=== PATIENT | female | born 1935 | race Caucasian/White ===

== ENCOUNTER 2017-05-23 15:30 | Emergency (ER) | payer MEDICARE, OTHER, SELFPAY | END 2017-05-23 20:30 | disposition home or self-care (01) | PROVIDERS: Emergency Provider Emergency Medicine; Family Provider Nurse Practitioner Family; PCP Nurse Practitioner Family; Visit Provider Emergency Medicine | DX: I48.91 Unspecified atrial fibrillation (principal) | CPT/HCPCS: 71010; 71045; 80053; 83880; 84484; 85025; 85610; 85730; 92960; 93005; 93010; 96374; 99058; 99285; J2704 ==

== ENCOUNTER → 2017-09-28 16:57 | Outpatient (CLI) | payer MEDICARE, OTHER, SELFPAY ==
--- NOTE | 2017-09-28 17:00 | DI.MRI.S_ITS ---
PROCEDURE: MR THORACIC SPINE WO CON INDICATIONS: THORACIC SPINE PAIN TECHNIQUE: Noncontrast sagittal T1 spine echo and T2 fast spin echo, sagittal STIR, axial T1 and T2 fast spin echo through the thoracic spine. COMPARISON: None. FINDINGS: Image quality: Excellent. Alignment and Curvature: There is normal bony alignment. Bone Marrow: Marrow is of normal overall signal. No acute vertebral body compression fractures. Spinal Cord: Visualized spinal cord is normal in size and signal. Paraspinous Soft Tissues: No paravertebral masses. There is a 3.1 x 2.3 x 5.1 cm lesion in the right paratracheal mediastinum that has hypointense T1 signal and hyperintense T2 signal. Miscellaneous: Mild multilevel degenerative changes. Mild lower thoracic spine facet hypertrophy. No central stenosis. No neural foraminal narrowing. On axial images, central canal and foramina appear widely patent at all scanned levels. IMPRESSION: 1. Mild multilevel degenerative disc disease. 2. Mild multilevel facet arthropathy. 3. No central stenosis 4. No neural foraminal narrowing. 5. No definite neural impingement. 6. 3.1 x 2.3 x 5.1 cm cystic mass in the mediastinum. Recommend dedicated CT scan of the chest with contrast for further characterization. Dictated by: Leelee Tompkins MD, PhD on 09/29/2017 at 11:07 Approved by: Leelee Tompkins MD, PhD on 09/29/2017 at 11:15
== END ==
PROVIDERS: Family Provider Nurse Practitioner Family; PCP Nurse Practitioner Family; Visit Provider Physical Medicine & Rehabilitation Pain Medicine
DX: M51.34 Other intervertebral disc degeneration, thoracic region (principal); M47.814 Spondylosis without myelopathy or radiculopathy, thoracic region; J98.59 Other diseases of mediastinum, not elsewhere classified
CPT/HCPCS: 72146

== ENCOUNTER → 2017-10-24 11:30 | Outpatient (CLI) | payer MEDICARE, OTHER, SELFPAY ==
--- NOTE | 2017-10-24 | DI.CT.S_ITS ---
PROCEDURE: CT CHEST WO CON INDICATIONS: PERATRACHEAL MEDIASTINAL MASS TECHNIQUE: Noncontrast 5 mm thick sections acquired from the pulmonary apices to the posterior costophrenic angles. 7 mm thick coronal and sagittal MIP reformats were then acquired. For radiation dose reduction, the following was used: automated exposure control, adjustment of mA and/or kV according to patient size. COMPARISON: [facility], CT, C-SPINE WITHOUT CONTRAST, 01/09/2013, 14:26. [facility], CT, HEAD WITHOUT CONTRAST, 01/09/2013, 14:26. [facility], MR, MR THORACIC SPINE WO CON, 09/28/2017, 17:31. FINDINGS: Image quality: Somewhat limited by absence of intravenous contrast.. Lungs and pleura: No acute air space opacities. No pleural effusions or pneumothorax. Central and peripheral airways are patent and normal in caliber. Mediastinum: Heart size is normal. No pericardial effusion. No mediastinal adenopathy by size criteria. The right posterolateral border of the tracheal airway there is a water density structure corresponding to that seen during thoracic spine MR scanning recently, and this measures 6.0 Hounsfield units and has a maximal oblique AP and transverse dimension of 1.9 x 2.6 cm. The same structure can be found on a prior neck CT from 01/09/13, having mildly enlarged in size over time measuring up to 1.8 x 2.1 cm. Thoracic aorta and central pulmonary arteries are normal in size. Esophagus is normal in caliber. No hiatal hernia. Bones and chest wall: No suspicious bony lesions. No vertebral body compression fractures. No axillary or supraclavicular adenopathy by size criteria. Thyroid gland shows no acute disease.. Abdomen: Visualized upper abdominal solid organs and bowel loops appear normal in the absence of contrast. IMPRESSION: The absence of intravenous contrast does diminish accuracy of this study, but the study is diagnostic. There is a water density cystic structure at the right posterolateral tracheal border, thoracic inlet area, near the axial level of the thyroid gland. This was previously present, smaller in size, on the CT scan of the neck from 01/09/13 and has increased to only a small degree from 1.8 x 2.1 cm to 1.9 x 2.6 cm. Benign etiology is presumed. No additional abnormality is found. 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 Dictated by: Demarcus Cleveland M.D. on 10/24/2017 at 12:47 Approved by: Demarcus Cleveland M.D. on 10/24/2017 at 12:54
== END ==
PROVIDERS: Family Provider Nurse Practitioner Family; PCP Nurse Practitioner Family; Visit Provider Nurse Practitioner Family
DX: J98.59 Other diseases of mediastinum, not elsewhere classified (principal)
CPT/HCPCS: 71250

== ENCOUNTER → 2017-11-28 12:00 | Oncology outpatient (ONC) | payer MEDICARE, OTHER, SELFPAY ==
--- NOTE | 2017-11-27 09:21 | ONC.SCHED ---
patient left insurance cards at home . . . will bring them in next time
[2017-11-27 09:53] LABS: Add Manual Diff / Slide Review NO; Basophils Percent Auto 1.1 % (0-2); Eosinophils Percent Auto 3.1 % (2-4); Hemoglobin 7.5 g/dL (12.0-16.0); Lymphocytes Percent Auto 17.4 % (25-40); Mean Corpuscular HGB Conc 31.4 % (30-36); Mean Corpuscular Volume 73.4 fL (80-100); Monocytes Percent Auto 8.9 % (3-14); Neutrophils Absolute Auto 3300 /uL (3000-5900); Neutrophils Percent Auto 69.5 % (50-75); Platelet Count 70 X10^3/uL (150-400); Red Blood Cell Count 3.24 X10^6/uL (4.0-5.2); Red Cell Distribution Width 17.4 % (11.6-14.8); White Blood Cell Count 4.8 X10^3/uL (4.5-11.0)
[2017-11-27 09:54] LABS: Hematocrit 23.8 % (36-46)
[2017-11-27 11:53] VITALS: BP 153/63; PULSE 69; RESP 16; TEMP 36.9
[2017-11-27 12:10] VITALS: BP 156/74; PULSE 73; RESP 20; TEMP 36
--- NOTE | 2017-11-27 12:23 | TAR.TRANSNT ---
Slight shortness of breath. Encouraged deep breathing. Rate only increased to 100 cc/hr. Vitals repeated in 10 minutes.
[2017-11-27 14:24] VITALS: BP 123/77; PULSE 79; RESP 18; TEMP 36.8
[2017-11-27] MEDS: FUROSEMIDE 20 MG/2 ML VIAL 40 MG IV (14:55)
--- NOTE | 2017-11-27 16:56 | PC.NURSE ---
Vitals @ 1242 135/75, T98.3, p=74, r =20 upt to BR and voided, feeling much better. Ankles 4 + edema. Wears compression sock to deal with lymphedema. 1335 rate increased to 175. Able to finish first unit. Up to BR again and only passed gas. Given 40 IV Lasix. IV kept in place per pt.s request when will return in AM for 2nd unit. D/C with spouse ,ambulatory.
[2017-11-28 12:44] VITALS: BP 154/55; PULSE 77; RESP 16; TEMP 36.4
[2017-11-28 13:00] VITALS: BP 147/67; PULSE 76; RESP 18; TEMP 36.9
[2017-11-28 15:20] VITALS: BP 157/97; PULSE 83; RESP 16; TEMP 37.3
[2017-11-28 15:47] LABS: Hematocrit 31.6 % (36-46); Hemoglobin 10.1 g/dL (12.0-16.0)
--- NOTE | 2017-11-28 15:54 | PC.NURSE ---
Brooke came in for 2nd unit of blood via perpherial IV which still worked well today. Received blood without incident. Reported bowels and bladder REALLY worked last night and Brooke is feeling much better.Iv site maintained for testing on 11/29 with endoscopy. CBC drawn post infusion. D/C with spouse using cane.
== END ==
PROVIDERS: PCP Nurse Practitioner Family; Visit Provider Internal Medicine
DX: D50.0 Iron deficiency anemia secondary to blood loss (chronic) (principal)
CPT/HCPCS: 36415; 36430; 85014; 85018; 85025; 86850; 86900; 86901; 96374; P9016; J1940

== ENCOUNTER 2017-11-29 08:32 | Day surgery (SDC) | payer MEDICARE, OTHER, SELFPAY ==
--- NOTE | 2017-11-29 | PATH_ITS ---
[facility] Accession Number: [id number] . 01 Material submitted: . GASTRIC POLYP . 02 Diagnosis: Gastric Polyp, Biopsy: Features of hyperplastic gastric polyp. No evidence of Helicobacter organisms on H/E stain. Negative for intestinal metaplasia, dysplasia or malignancy. MRV/11/30/2017 . 02 Electronically signed: . John Valenzuela MD, PhD, Pathologist NPI- [id number] . 01 Gross description: . Received one formalin-filled container labeled with the patient's name and labeled gastric polyp. The specimen consists of a 0.2 cm portion of tissue, entirely submitted in one cassette. (DC:[id number]) /FRR . 02 Pathologist provided ICD-10: K31.7 . 02 CPT . 847747 Performed at: 01 [facility] [address] [id number] MD Hilton Sandoval MD Phone: [phone] Performed at: 02 [facility] [id number] [place] [id number] MD Eliu Penn MD Phone: [phone]
[2017-11-29 09:04] VITALS: BP 175/88; PULSE 65; RESP 16; TEMP 36.2; O2SAT 97; BMI 28.8
--- NOTE | 2017-11-29 09:21 | PM.HP.1 ---
History of Present Illness Date Patient Seen: 11/29/17 Time Patient Seen: 09:34 Chief complaint: egd [id number] Narrative: Melena with severe blood loss anemia. Stopped anticoagulation on November 23. Received 2 units of packed blood cells over the last 2 days. 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) Diabetes mellitus (Acute) History of CVA (cerebrovascular accident) (Acute) Hypercholesterolemia (Acute) Hypertension (Acute) Melanoma (Acute) Meningioma (Acute) Surgical History H/O rotator cuff surgery (Acute) History of appendectomy (Acute) History of bladder suspension procedure (Acute) History of colon resection (Acute) History of tonsillectomy (Acute) History of total knee replacement (Acute) S/P JOSE J-BSO (Acute) Family & Social History Social History: household members spouse Meds Home Medications Medication Instructions Recorded Confirmed Type doxepin 50 mg PO HS #0 03/18/12 History metoprolol tartrate 25 mg PO BID #0 12/19/15 History apixaban [Eliquis] 5 mg PO BID #0 05/23/17 History ciprofloxacin HCl [Cipro] 250 mg PO BID #0 05/23/17 History Allergies Allergy/AdvReac Type Severity Reaction Status Date / Time Penicillins [PENICILLINS] Allergy Severe fingers Verified 11/29/17 09:01 and face swell Sulfa (Sulfonamide Allergy Severe I BREAK Verified 11/29/17 09:01 Antibiotics) OUT IN WELTS aspirin [ASPIRIN] Allergy Unknown welts Verified 11/29/17 09:01 bacitracin [BACITRACIN] Allergy Unknown Verified 11/29/17 09:01 codeine [CODEINE] Allergy Unknown makes my Verified 11/29/17 09:01 stomach ache and throw up dicyclomine [DICYCLOMINE] Allergy Unknown welts Verified 11/29/17 09:01 diltiazem [DILTIAZEM] Allergy Unknown welts Verified 11/29/17 09:01 ibuprofen [IBUPROFEN] Allergy Unknown my heart Verified 11/29/17 09:01 races off the paper levofloxacin [LEVOFLOXACIN] Allergy Unknown rash Verified 11/29/17 09:01 meperidine [From DEMEROL] Allergy Unknown wel and Verified 11/29/17 09:01 I feel like I am not with it morphine [MORPHINE] Allergy Unknown welts Verified 11/29/17 09:01 neomycin [NEOMYCIN] Allergy Unknown Verified 11/29/17 09:01 nitroglycerin [NITROGLYCERIN] Allergy Unknown my body Verified 11/29/17 09:01 turns all dark blue phenylbutazone Allergy Unknown welts Verified 11/29/17 09:01 [PHENYLBUTAZONE] polymyxin B [POLYMYXIN B] Allergy Unknown Verified 11/29/17 09:01 ranitidine [RANITIDINE] Allergy Unknown welts Verified 11/29/17 09:01 IVP DYE Allergy Unknown MY Uncoded 05/17/17 13:10 FINGERS, FACE SWELL HUGE Exam Vital Signs (past 8 hours): - 11/29/17 09:04 Temperature 97.2 F L Pulse Rate 65 Respiratory Rate 16 Blood Pressure 175/88 H Pulse Oximetry 97 Oxygen Delivery Method Room Air Narrative Exam Narrative: Oropharynx free of lesions Chest clear to auscultation and percussion Cardiac exam reveals no S3 or murmur Assessment & Plan Plan: Assessment/Plan Narrative: Assessment: 1. Severe blood loss anemia with melena now currently off anticoagulation. Rule out upper tract source. 2. Mild substernal dysphagia rule out Schatzki's ring versus esophageal stenosis 3. Cystic structure in her upper mediastinum doubt related to either 1. Or 2. Plan: EGD
[2017-11-29] MEDS: SODIUM CHLORIDE 0.9% 1,000 ML 42 ML IV (09:23)
--- NOTE | 2017-11-29 09:40 | P.HP_ITS ---
History of Present Illness Date Patient Seen: 11/29/17 Time Patient Seen: 09:34 Chief complaint: egd [id number] Narrative: Melena with severe blood loss anemia. Stopped anticoagulation on November 23. Received 2 units of packed blood cells over the last 2 days. 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) Diabetes mellitus (Acute) History of CVA (cerebrovascular accident) (Acute) Hypercholesterolemia (Acute) Hypertension (Acute) Melanoma (Acute) Meningioma (Acute) Surgical History H/O rotator cuff surgery (Acute) History of appendectomy (Acute) History of bladder suspension procedure (Acute) History of colon resection (Acute) History of tonsillectomy (Acute) History of total knee replacement (Acute) S/P JOSE J-BSO (Acute) Family & Social History Social History: household members spouse Meds Home Medications Medication Instructions Recorded Confirmed Type doxepin 50 mg PO HS #0 03/18/12 History metoprolol tartrate 25 mg PO BID #0 12/19/15 History apixaban [Eliquis] 5 mg PO BID #0 05/23/17 History ciprofloxacin HCl [Cipro] 250 mg PO BID #0 05/23/17 History Allergies Allergy/AdvReac Type Severity Reaction Status Date / Time Penicillins [PENICILLINS] Allergy Severe fingers Verified 11/29/17 09:01 and face swell Sulfa (Sulfonamide Allergy Severe I BREAK Verified 11/29/17 09:01 Antibiotics) OUT IN WELTS aspirin [ASPIRIN] Allergy Unknown welts Verified 11/29/17 09:01 bacitracin [BACITRACIN] Allergy Unknown Verified 11/29/17 09:01 codeine [CODEINE] Allergy Unknown makes my Verified 11/29/17 09:01 stomach ache and throw up dicyclomine [DICYCLOMINE] Allergy Unknown welts Verified 11/29/17 09:01 diltiazem [DILTIAZEM] Allergy Unknown welts Verified 11/29/17 09:01 ibuprofen [IBUPROFEN] Allergy Unknown my heart Verified 11/29/17 09:01 races off the paper levofloxacin [LEVOFLOXACIN] Allergy Unknown rash Verified 11/29/17 09:01 meperidine [From DEMEROL] Allergy Unknown wel and Verified 11/29/17 09:01 I feel like I am not with it morphine [MORPHINE] Allergy Unknown welts Verified 11/29/17 09:01 neomycin [NEOMYCIN] Allergy Unknown Verified 11/29/17 09:01 nitroglycerin [NITROGLYCERIN] Allergy Unknown my body Verified 11/29/17 09:01 turns all dark blue phenylbutazone Allergy Unknown welts Verified 11/29/17 09:01 [PHENYLBUTAZONE] polymyxin B [POLYMYXIN B] Allergy Unknown Verified 11/29/17 09:01 ranitidine [RANITIDINE] Allergy Unknown welts Verified 11/29/17 09:01 IVP DYE Allergy Unknown MY Uncoded 05/17/17 13:10 FINGERS, FACE SWELL HUGE Exam Vital Signs (past 8 hours): - 11/29/17 09:04 Temperature 97.2 F L Pulse Rate 65 Respiratory Rate 16 Blood Pressure 175/88 H Pulse Oximetry 97 Oxygen Delivery Method Room Air Narrative Exam Narrative: Oropharynx free of lesions Chest clear to auscultation and percussion Cardiac exam reveals no S3 or murmur Assessment & Plan Plan: Assessment/Plan Narrative: Assessment: 1. Severe blood loss anemia with melena now currently off anticoagulation. Rule out upper tract source. 2. Mild substernal dysphagia rule out Schatzki's ring versus esophageal stenosis 3. Cystic structure in her upper mediastinum doubt related to either 1. Or 2. Plan: EGD
[2017-11-29] MEDS: MIDAZOLAM 5 MG/5 ML VIAL IV (10:06)
--- NOTE | 2017-11-29 10:10 | PM.OP.ENDO ---
Operative Date/Time/Diagnoses Date of procedure: 11/29/17 Time of procedure: 10:10 Pre-op diagnosis: See indication and findings Post-op diagnosis: same Procedure & Clinicians Study performed: EGD Same procedure as scheduled: Yes Indications: Severe blood loss anemia with possible melena. Just received 2 units of packed cells this week. Rule out upper tract source. In addition patient has mild substernal dysphagia. Surgeon: Dorothea Boone Procedure Notes Procedure in detail: Premedications: Fentanyl 50 mcg Versed 2 mg IV titration Total sedation time 17 min After informed consent was obtained the patient was placed in left lateral decubitus position. The video upper scope was placed into the oropharynx and the patient's health swelled and the esophagus. The esophagus stomach and duodenum were carefully examined. On withdrawal retroflexed view the GE junction was performed. The scope was removed. Patient tolerated procedure well. Blood loss none Complications none Findings 1. Completely normal esophagus. There was no evidence of any extrinsic compression nor was any evidence of inflammation or neoplasia. The squamocolumnar junction was totally normal. 2. 8 mm polyp in the greater curvature/antrum body border. This was biopsied x1 to rule out adenoma. 3. Otherwise normal stomach with no evidence of inflammation Four. Normal duodenal bulb and sweep Unfortunately, with no source of bleeding found, Brooke is going to need colonoscopy to follow up on a blood loss source. I will discuss with Dr. ferguson on the timing and scheduling of this procedure.
[2017-11-29] MEDS: fentaNYL 250 MCG/5 ML INJ IV (10:13)
[2017-11-29 10:18] VITALS: BP 145/82; PULSE 71; RESP 20; TEMP 36.9; O2SAT 91
[2017-11-29 10:23] VITALS: BP 157/75; PULSE 62; RESP 15; O2SAT 100
[2017-11-29 10:28] VITALS: BP 142/80; PULSE 62; RESP 17; O2SAT 99
[2017-11-29 10:40] VITALS: BP 164/88; PULSE 67; RESP 16; TEMP 36.9; O2SAT 97
--- NOTE | 2017-11-29 10:50 | SUR.PHASEII ---
op report given to patient per Dr. Boone.
--- NOTE | 2017-11-29 10:54 | SUR.PHASEII ---
patient eatting crackers and applesauce and drinking apple juice waiting on to return.
--- NOTE | 2017-11-29 11:05 | SUR.PHASEII ---
patient dressed and sitting in wheelchair waiting on and Dr. Boone to speak to them before they leave. no distress noted.
== END 2017-11-29 11:35 | disposition home or self-care (01) ==
PROVIDERS: PCP Internal Medicine; Visit Provider Internal Medicine Gastroenterology
PROC: 0DJ08ZZ Inspection of Upper Intestinal Tract, Via Natural or Artificial Opening Endoscopic (ICD-10-PCS; CPT 43235; principal; 2017-11-29 09:30)
DX: D62 Acute posthemorrhagic anemia (principal); R13.10 Dysphagia, unspecified; K31.7 Polyp of stomach and duodenum; E11.9 Type 2 diabetes mellitus without complications; E78.00 Pure hypercholesterolemia, unspecified; I10 Essential (primary) hypertension; I48.91 Unspecified atrial fibrillation; Z86.73 Personal history of transient ischemic attack (TIA), and cerebral infarction without residual deficits
CPT/HCPCS: 43239; 88305; J2250; J3010

== ENCOUNTER 2017-12-13 10:28 | Day surgery (SDC) | payer MEDICARE, OTHER, SELFPAY ==
--- NOTE | 2017-12-13 | PATH_ITS ---
[facility] Accession Number: [id number] . 01 Material submitted: . PART A: ASCENDING COLON MASS PART B: RECTAL SIGMOID POLYP . 02 Diagnosis: A. Ascending Colon, Mass, Biopsies: Invasive adenocarcinoma, moderately differentiated. Please see comment. . B. Rectosigmoid, Polyp, Biopsy: Tubular adenoma. MRV/12/14/2017 . 02 Comment: A. As part of routine quality assurance calibrator, Dr. Amado also reviewed part A of this case and agrees with the diagnosis. Dr. Hood discussed the results with Dr. Clarke 12/14/2017. Mismatch repair IHC will be performed and the results reported as an addendum. . 02 Electronically signed: . Martha Hood MD, Pathologist NPI- [id number] . 01 Gross description: . Received two formalin-filled containers, both labeled with the patient's name: . A. In a container labeled ascending colon mass, the specimen consists of three 0.2-0.4 cm portions of tissue, entirely submitted in cassette A. B. In a container labeled rectosigmoid polyp, the specimen consists of a 0.4 cm portion of tissue, entirely submitted in cassette B. (DC:[id number]) /FRR . 02 Pathologist provided ICD-10: C18.9 . 02 CPT . 046589, 475092, I17816, V73998 Specimen Comment: A duplicate report has been generated due to demographic updates. Performed at: 01 [facility] [address] [facility] [place], [place], [place] [id number] MD Hilton Sandoval MD Phone: [phone] Performed at: 02 [facility] [place] [id number] [place] [id number] MD Eliu Penn MD Phone: [phone]
--- NOTE | 2017-12-13 08:23 | PM.HP.1 ---
History of Present Illness Date Patient Seen: 12/13/17 Chief complaint: colonoscopy [id number] Narrative: 82-year-old female with a history of melena and acute blood loss anemia who is here for colonoscopy after EGD performed 11/29/2017 was unrevealing for a bleeding source. Patient had a hyperplastic gastric polyp on that exam otherwise unremarkable exam. She has been off her Eliquis for over 2 weeks due to the GI bleed Patient History Medical History Current use of assisted anticoagulation (Acute) Diabetes mellitus (Acute) History of CVA (cerebrovascular accident) (Acute) Hypercholesterolemia (Acute) Hypertension (Acute) Melanoma (Acute) Meningioma (Acute) Surgical History H/O rotator cuff surgery (Acute) History of appendectomy (Acute) History of bladder suspension procedure (Acute) History of colon resection (Acute) History of tonsillectomy (Acute) History of total knee replacement (Acute) S/P JOSE J-BSO (Acute) Family & Social History Social History: household members spouse Meds Home Medications Medication Instructions Recorded Confirmed Type doxepin 50 mg PO HS #0 03/18/12 History metoprolol tartrate 25 mg PO BID #0 12/19/15 History apixaban [Eliquis] 5 mg PO BID #0 05/23/17 History gabapentin 100 mg PO DAILY 12/13/17 12/13/17 History Allergies Allergy/AdvReac Type Severity Reaction Status Date / Time Penicillins [PENICILLINS] Allergy Severe fingers Verified 11/29/17 09:01 and face swell Sulfa (Sulfonamide Allergy Severe I BREAK Verified 11/29/17 09:01 Antibiotics) OUT IN WELTS aspirin [ASPIRIN] Allergy Unknown welts Verified 11/29/17 09:01 bacitracin [BACITRACIN] Allergy Unknown Verified 11/29/17 09:01 codeine [CODEINE] Allergy Unknown makes my Verified 11/29/17 09:01 stomach ache and throw up dicyclomine [DICYCLOMINE] Allergy Unknown welts Verified 11/29/17 09:01 diltiazem [DILTIAZEM] Allergy Unknown welts Verified 11/29/17 09:01 ibuprofen [IBUPROFEN] Allergy Unknown my heart Verified 11/29/17 09:01 races off the paper levofloxacin [LEVOFLOXACIN] Allergy Unknown rash Verified 11/29/17 09:01 meperidine [From DEMEROL] Allergy Unknown welts and Verified 11/29/17 09:01 I feel like I am not with it morphine [MORPHINE] Allergy Unknown welts Verified 11/29/17 09:01 neomycin [NEOMYCIN] Allergy Unknown Verified 11/29/17 09:01 nitroglycerin [NITROGLYCERIN] Allergy Unknown my body Verified 11/29/17 09:01 turns all dark blue phenylbutazone Allergy Unknown welts Verified 11/29/17 09:01 [PHENYLBUTAZONE] polymyxin B [POLYMYXIN B] Allergy Unknown Verified 11/29/17 09:01 ranitidine [RANITIDINE] Allergy Unknown welts Verified 11/29/17 09:01 IVP DYE Allergy Unknown MY Uncoded 05/17/17 13:10 FINGERS, FACE SWELL HUGE Review of Systems Review of Systems All systems reviewed & are unremarkable except as noted in HPI and below Exam Narrative Exam Narrative: General: Patient is well developed, not in apparent distress Cardiovascular: Regular rate and rhythm, no murmurs, rubs, or gallops; no evidence of edema; no palpable abdominal aortic aneurysm Gastrointestinal: Normoactive bowel sounds, soft, nontender, nondistended, no rebound tenderness, no hepatosplenomegaly, no evidence of hernia Assessment & Plan Plan: Assessment/Plan Narrative: 82-year-old female with a history of acute blood loss anemia and melena with unrevealing EGD for source of bleeding who is here for colonoscopy. She has been off Eliquis for 2 weeks Regarding the procedure(s), the risks and potential complications, benefits, and alternatives (including not doing the procedure) were discussed with the patient. The risks include but are not limited to bleeding, splenic injury, infection, perforation which may require surgical intervention, missed lesions, and adverse reactions to sedative medicines. After a question and answer period, the patient agreed to proceed with the procedure(s) and gives informed consent.
--- NOTE | 2017-12-13 08:26 | P.HP_ITS ---
History of Present Illness Date Patient Seen: 12/13/17 Chief complaint: colonoscopy [id number] Narrative: 82-year-old female with a history of melena and acute blood loss anemia who is here for colonoscopy after EGD performed 11/29/2017 was unrevealing for a bleeding source. Patient had a hyperplastic gastric polyp on that exam otherwise unremarkable exam. She has been off her Eliquis for over 2 weeks due to the GI bleed Patient History Medical History Current use of [employer] anticoagulation (Acute) Diabetes mellitus (Acute) History of CVA (cerebrovascular accident) (Acute) Hypercholesterolemia (Acute) Hypertension (Acute) Melanoma (Acute) Meningioma (Acute) Surgical History H/O rotator cuff surgery (Acute) History of appendectomy (Acute) History of bladder suspension procedure (Acute) History of colon resection (Acute) History of tonsillectomy (Acute) History of total knee replacement (Acute) S/P JOSE J-BSO (Acute) Family & Social History Social History: household members spouse Meds Home Medications Medication Instructions Recorded Confirmed Type doxepin 50 mg PO HS #0 03/18/12 History metoprolol tartrate 25 mg PO BID #0 12/19/15 History apixaban [Eliquis] 5 mg PO BID #0 05/23/17 History gabapentin 100 mg PO DAILY 12/13/17 12/13/17 History Allergies Allergy/AdvReac Type Severity Reaction Status Date / Time Penicillins [PENICILLINS] Allergy Severe fingers Verified 11/29/17 09:01 and face swell Sulfa (Sulfonamide Allergy Severe I BREAK Verified 11/29/17 09:01 Antibiotics) OUT IN WELTS aspirin [ASPIRIN] Allergy Unknown welts Verified 11/29/17 09:01 bacitracin [BACITRACIN] Allergy Unknown Verified 11/29/17 09:01 codeine [CODEINE] Allergy Unknown makes my Verified 11/29/17 09:01 stomach ache and throw up dicyclomine [DICYCLOMINE] Allergy Unknown welts Verified 11/29/17 09:01 diltiazem [DILTIAZEM] Allergy Unknown welts Verified 11/29/17 09:01 ibuprofen [IBUPROFEN] Allergy Unknown my heart Verified 11/29/17 09:01 races off the paper levofloxacin [LEVOFLOXACIN] Allergy Unknown rash Verified 11/29/17 09:01 meperidine [From DEMEROL] Allergy Unknown welts and Verified 11/29/17 09:01 I feel like I am not with it morphine [MORPHINE] Allergy Unknown welts Verified 11/29/17 09:01 neomycin [NEOMYCIN] Allergy Unknown Verified 11/29/17 09:01 nitroglycerin [NITROGLYCERIN] Allergy Unknown my body Verified 11/29/17 09:01 turns all dark blue phenylbutazone Allergy Unknown welts Verified 11/29/17 09:01 [PHENYLBUTAZONE] polymyxin B [POLYMYXIN B] Allergy Unknown Verified 11/29/17 09:01 ranitidine [RANITIDINE] Allergy Unknown welts Verified 11/29/17 09:01 IVP DYE Allergy Unknown MY Uncoded 05/17/17 13:10 FINGERS, FACE SWELL HUGE Review of Systems Review of Systems All systems reviewed & are unremarkable except as noted in HPI and below Exam Narrative Exam Narrative: General: Patient is well developed, not in apparent distress Cardiovascular: Regular rate and rhythm, no murmurs, rubs, or gallops; no evidence of edema; no palpable abdominal aortic aneurysm Gastrointestinal: Normoactive bowel sounds, soft, nontender, nondistended, no rebound tenderness, no hepatosplenomegaly, no evidence of hernia Assessment & Plan Plan: Assessment/Plan Narrative: 82-year-old female with a history of acute blood loss anemia and melena with unrevealing EGD for source of bleeding who is here for colonoscopy. She has been off Eliquis for 2 weeks Regarding the procedure(s), the risks and potential complications, benefits, and alternatives (including not doing the procedure) were discussed with the patient. The risks include but are not limited to bleeding, splenic injury, infection, perforation which may require surgical intervention, missed lesions, and adverse reactions to sedative medicines. After a question and answer period , the patient agreed to proceed with the procedure(s) and gives informed consent.
[2017-12-13 11:02] VITALS: BP 146/73; PULSE 77; RESP 16; TEMP 36.6; O2SAT 98; BMI 33.3
[2017-12-13] MEDS: SODIUM CHLORIDE 0.9% 1,000 ML 70 ML IV (11:13)
--- NOTE | 2017-12-13 11:17 | PM.OP.ENDO ---
Operative Date/Time/Diagnoses Date of procedure: 12/13/17 Procedure Notes Procedure in detail: Surgeon: Johnnie Rios MD Procedure: Colonoscopy with polypectomy, biopsy, and tattoo Preoperative diagnosis: Acute anemia, melena; unrevealing EGD November 2017 Postoperative diagnosis: Ascending colon mass status post biopsy and tattoo, rectosigmoid colon polyp status post polypectomy, sigmoid diverticulosis, grade 2 internal hemorrhoids Medications: Conscious sedation using 2 mg IV of Midazolam and 50 mcg IV of Fentanyl Preanesthesia Assessment An H and P was performed/updated and the Px?s ASA class is 2. The procedure was discussed in detail with the patient. The potential risks and complications including infection, bleeding, missed lesions, perforation, need for surgery in case of perforation, prolonged hospital stay, and were explained. A brief question and answer period was allotted and once all questions were answered, informed consent was obtained. The patient was brought back to the procedure room and placed on standard monitoring. The patient?s vital signs were monitored continuously throughout the entire procedure. Prior to starting, a timeout was performed to confirm the patient?s identity, allergies, medications, and procedure. The patient was off her Eliquis for more than 2 weeks Procedure in detail The patient was placed in left lateral decubitus position and once adequate sedation was obtained a KELSEY was performed. The digital rectal examination did not reveal any palpable lesions. The tip of the colonoscope was placed in the anal canal and advanced without difficulty all the way to the cecum which was identified by the appendiceal orifice and the ileocecal valve. In the proximal ascending colon just distal to the ileocecal valve there is note of a 3 cm ulcerating mass spanning 1/4 the circumference of the colon. Biopsies were taken of the mass and an adjacent tattoo was placed using 2 cc of spot ink which was injected through the needle. In the sigmoid colon there was note of multiple small diverticula In the rectosigmoid colon there was note of a 5 mm pedunculated polyp which was removed by means of cold snare. Resection and retrieval were complete with minimal bleeding Retroflexion was performed in the rectum which revealed grade 2 internal hemorrhoids The patient tolerated the procedure well and will be brought back to the recovery area to be discharged once criteria are met. The prep was judged to be good/excellent and adequate to identify polyps less than 5 mm. The withdrawal time was 12 min. The total physician intraservice time was 18 min. Complications There were no complications and estimated blood loss was minimal. Recommendations: Resume previous diet Continue outPx medications Follow up pathology results Refer to [facility] (Dr Ellison) Check CEA Check CT abdomen and pelvis with contrast Refer to [facility] An emergency contact number was given to the patient for any complications related to the procedure Discussed findings with Dr. Clarke (PCP) over the phone
--- NOTE | 2017-12-13 11:32 | SUR.OPER ---
advanced to cecum at 1125
[2017-12-13] MEDS: fentaNYL 250 MCG/5 ML INJ IV (11:34)
[2017-12-13] MEDS: MIDAZOLAM 5 MG/5 ML VIAL IV (11:34)
[2017-12-13 11:40] VITALS: BP 132/46; PULSE 71; RESP 18; TEMP 36.6; O2SAT 98
[2017-12-13 11:45] VITALS: BP 128/62; PULSE 70; RESP 17; O2SAT 98
[2017-12-13 11:50] VITALS: BP 125/62; PULSE 68; RESP 15; TEMP 36.6; O2SAT 97
--- NOTE | 2017-12-13 11:51 | PM.DS.1 ---
History of Present Illness Chief complaint: colonoscopy [address] Narrative: 82-year-old female with a history of melena and acute blood loss anemia who is here for colonoscopy after EGD performed 11/29/2017 was unrevealing for a bleeding source. Patient had a hyperplastic gastric polyp on that exam otherwise unremarkable exam. She has been off her Eliquis for over 2 weeks due to the GI bleed Discharge Providers Primary care physician: Rui Clarke MD Consults: 12/13/17 11:11 Consult to Respiratory Therapy Evaluate & Treat Comment: Physician Instructions: Evaluate and treat Discharge provider: Johnnie Rios MD Discharge Date: 12/13/17 Exam Vital Signs (past 8 hours): - 12/13/17 11:02 12/13/17 11:40 12/13/17 11:45 Temperature 97.8 F 98 F Pulse Rate 77 71 70 Respiratory Rate 16 18 17 Blood Pressure 146/73 H 132/46 L 128/62 Pulse Oximetry 98 98 98 Oxygen Delivery Method Room Air Narrative Exam Narrative: General: Patient is obese, not in apparent distress Cardiovascular: Regular rate and rhythm, no murmurs, rubs, or gallops; no evidence of edema; no palpable abdominal aortic aneurysm Gastrointestinal: Normoactive bowel sounds, soft, nontender, nondistended, no rebound tenderness, no hepatosplenomegaly, no evidence of hernia Discharge Plan Discharge Plan Patient Disposition: Home Discharge Med Rec/Prescriptions Prescriptions: Continue doxepin 50 MG capsule 50 mg PO HS Qty: 0 RF: 0 metoprolol tartrate 25 MG tablet 25 mg PO BID Qty: 0 RF: 0 gabapentin 100 mg Capsule 100 mg PO DAILY RF: 0 No Action apixaban [Eliquis] 5 MG tablet 5 mg PO BID Qty: 0 RF: 0 Discharge Orders: Discharge (Order); Ordered 12/13/17 Ordered By: Johnnie Rios Visit Report/Discharge Packet Stand Alone Forms: Surgery Discharge Discharge Data Primary Care Provider: Rui Clarke Attending Provider: Johnnie Rios
[2017-12-13 11:55] VITALS: BP 133/61; PULSE 68; RESP 18; TEMP 36.8; O2SAT 97
--- NOTE | 2017-12-13 12:16 | SUR.PHASEII ---
Dr. Rios wants to speak to patient and family prior to discharge. pt drinking grape juice no apparent distress noted.
[2017-12-13 13:00] VITALS: BP 148/79; PULSE 76; RESP 16; TEMP 37.5; O2SAT 99
== END 2017-12-13 13:12 | disposition home or self-care (01) ==
PROVIDERS: PCP Internal Medicine; Visit Provider Internal Medicine Gastroenterology
PROC: 0DJD8ZZ Inspection of Lower Intestinal Tract, Via Natural or Artificial Opening Endoscopic (ICD-10-PCS; CPT 45378; principal; 2017-12-13 12:30)
DX: C18.9 Malignant neoplasm of colon, unspecified (principal); D50.9 Iron deficiency anemia, unspecified; Z79.01 Long term (current) use of anticoagulants; E11.9 Type 2 diabetes mellitus without complications; Z86.73 Personal history of transient ischemic attack (TIA), and cerebral infarction without residual deficits; E78.00 Pure hypercholesterolemia, unspecified; I10 Essential (primary) hypertension; K64.1 Second degree hemorrhoids
CPT/HCPCS: 45385; 45380; 45381; 88305; 88341; 88342; J2250; J3010

== ENCOUNTER → 2017-12-27 11:25 | Outpatient (CLI) | payer MEDICARE, OTHER, SELFPAY | PROVIDERS: PCP Internal Medicine; Visit Provider Surgery | DX: C18.9 Malignant neoplasm of colon, unspecified (principal); Z53.9 Procedure and treatment not carried out, unspecified reason ==

== ENCOUNTER → 2017-12-29 08:43 | Outpatient (CLI) | payer MEDICARE, OTHER, SELFPAY ==
--- NOTE | 2017-12-29 | DI.CT.S_ITS ---
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 TECHNIQUE: After the administration of oral and intravenous contrast, 5 mm thick sections acquired from the lung apices to the symphysis. 5 mm coronal and sagittal reformats were performed, with additional 7 mm coronal MIP reformats through the lungs. For radiation dose reduction, the following was used: automated exposure control, adjustment of mA and/or kV according to patient size. COMPARISON: [facility], CT, CT CHEST WO CON, 10/24/2017, 11:31. FINDINGS: Image quality: Excellent. CHEST: Lungs and pleura: No acute airspace opacities. No pleural effusions or pneumothorax. Central and peripheral airways appear patent and normal in caliber. Mediastinum: Heart size is normal. No pericardial effusion. No mediastinal or hilar adenopathy by size criteria. Thoracic aorta and central pulmonary arteries are normal in size. Esophagus is normal in caliber. No hiatal hernia. Stable appearing water density right posterolateral upper mediastinal cyst. 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 It measures approximately 3.5 x 2.2 x 3.6 cm. Chest wall: No axillary or supraclavicular adenopathy by size criteria. Thyroid gland appears normal where well visualized. ABDOMEN: Solid organs: Liver is normal in size and enhancement. Gallbladder is not seen but metallic surgical clips are not identified at the gallbladder fossa margins. Biliary system is non dilated. Pancreas enhances normally. Spleen is normal in size and enhancement. No adrenal nodules. Kidneys demonstrate normal size and enhancement, without hydronephrosis. Peritoneum and bowel: Bowel loops demonstrate normal wall thickness and caliber. No free fluid or air. Nodes and vessels: No retroperitoneal or mesenteric adenopathy by size criteria. Aorta and inferior vena cava are normal in size. Miscellaneous: No ventral hernias. PELVIS: Genitourinary: Bladder wall thickness is normal. Note is made of a small bubble within the anterior lumen of the bladder, without adjacent diverticulitis identified. Miscellaneous: No inguinal hernias or adenopathy. Bones: No suspicious bony lesions. No vertebral body compression fractures. IMPRESSION: 1. 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 2. No evidence of metastatic disease related to reported prior colon carcinoma. 3. Single small bubble within the bladder lumen, without evidence of adjacent diverticulitis. Etiology uncertain, please correlate for whether bladder catheterization may have been performed earlier. Diverticulosis is moderate in severity across the lower pelvis. Dictated by: Demarcus Cleveland M.D. on 12/29/2017 at 12:21 Approved by: Demarcus Cleveland M.D. on 12/29/2017 at 12:31
== END ==
PROVIDERS: PCP Internal Medicine; Visit Provider Surgery
DX: C18.9 Malignant neoplasm of colon, unspecified (principal); Z85.820 Personal history of malignant melanoma of skin; Z85.3 Personal history of malignant neoplasm of breast; K57.90 Diverticulosis of intestine, part unspecified, without perforation or abscess without bleeding
CPT/HCPCS: 71260; 74177; Q9967

== ENCOUNTER → 2018-03-05 15:23 | Outpatient (CLI) | payer MEDICARE, OTHER, SELFPAY ==
[2018-03-05 16:26] LABS: Appearance Urine UA SL CLOUDY; Bilirubin Urine UA NEGATIVE (NEGATIVE); Color Urine UA YELLOW; Glucose Urine UA NEGATIVE (Negative); Ketones Urine UA NEGATIVE (NEGATIVE); Leukocyte Esterase Urine UA 3+ (NEGATIVE); Nitrite Urine UA POSITIVE (Negative); Occult Blood Urine UA 1+ (Negative); Protein Urine UA NEGATIVE (Negative); Urobilinogen Urine UA 0.2 E.U./dL (0.2); pH Urine UA 5.5 (4.5-8.0)
[2018-03-05 16:51] LABS: Amorphous Sediment Urine 1+; RBC Urine 1-5/HPF (0-5/HPF); Renal Epithelial Cells Urine 0-1/HPF; Squamous Epithelial Cell Urine 0-1 /HPF; WBC Urine 30-100/HPF (0-5/HPF)
[2018-03-05 16:52] LABS: Bacteria Urine Many (>30); Culture Indicated Urine Specimen Cultured; Mucus Urine 1+ (Negative)
== END ==
PROVIDERS: PCP Internal Medicine; Visit Provider Internal Medicine
DX: R30.0 Dysuria (principal)
CPT/HCPCS: 81001; 87077; 87086; 87186

== ENCOUNTER 2018-03-16 14:27 | Emergency (ER) | payer MEDICARE, OTHER, SELFPAY ==
[2018-03-16 15:40] VITALS: BP 122/74; PULSE 72; RESP 16; TEMP 36.9; O2SAT 98
--- NOTE | 2018-03-16 17:12 | ED.SKABFB ---
HPI - Skin/Abscess/Foreign Bdy General Chief complaint: Skin/Abscess/Foreign Body Stated complaint: right leg breaking out in rash real bad Time Seen by Provider: 03/16/18 17:06 Source: patient and other (Dr. Clarke) Mode of arrival: ambulatory Limitations: no limitations History of Present Illness HPI narrative: This is an 82-year-old female comes to the emergency department with complaint of rash on her right lower extremity. Patient states that she noted about 2 days ago. She states that it is very itchy started more down towards the foot and has been extending up the leg. She also noticed a little bit on her other foot. Patient states she has not had similar rashes in the past. She denies any other bruising or skin changes. She did have melanoma not leg in the past. Patient was seen by her primary care and they ordered lab work which showed an elevated CRP and ESR, her hemoglobin has also decreased to 8.7. She was at a similar range in November was given 2 units blood it appears that she was at 10 at that time and then appears to have drifted down since then. Patient is not having any shortness of breath she is not having any chest pain or pressure, she is not having any abdominal pain. She had colon cancer that was found and had a resection in November. Patient states that she has been doing well since then she has not noticed any black or blood in her stool she is not having any urinary symptoms although she has been on 3 rounds of antibiotics most recent was Macrobid she states that she is currently taking that and that she does have multiple allergies to medications. Related Data Home Medications Medication Instructions Recorded Confirmed doxepin 50 mg PO BEDTIME #0 03/18/12 03/16/18 Eliquis 5 mg PO BID #0 05/23/17 03/16/18 gabapentin 100 mg PO DAILY 12/13/17 03/16/18 brimonidine-timolol [Combigan] 1 drp EYE-BOTH BID 03/16/18 03/16/18 furosemide 40 mg PO DAILY 03/16/18 latanoprost 1 drp OPHTHALMIC (EYE) BEDTIME 03/16/18 03/16/18 metformin 500 mg PO BID 03/16/18 03/16/18 metoprolol succinate 03/16/18 omeprazole 20 mg PO DAILY 03/16/18 03/16/18 Previous Rx's Medication Instructions Recorded prednisone See Rx Instructions .ROUTE 03/16/18 .COMPLEX #21 each Allergies Allergy/AdvReac Type Severity Reaction Status Date / Time Penicillins [PENICILLINS] Allergy Severe fingers Verified 11/29/17 09:01 and face swell Sulfa (Sulfonamide Allergy Severe I BREAK Verified 11/29/17 09:01 Antibiotics) OUT IN WELTS aspirin [ASPIRIN] Allergy Unknown welts Verified 11/29/17 09:01 bacitracin [BACITRACIN] Allergy Unknown Verified 11/29/17 09:01 codeine [CODEINE] Allergy Unknown makes my Verified 11/29/17 09:01 stomach ache and throw up dicyclomine [DICYCLOMINE] Allergy Unknown welts Verified 11/29/17 09:01 diltiazem [DILTIAZEM] Allergy Unknown welts Verified 11/29/17 09:01 ibuprofen [IBUPROFEN] Allergy Unknown my heart Verified 11/29/17 09:01 races off the paper levofloxacin [LEVOFLOXACIN] Allergy Unknown rash Verified 11/29/17 09:01 meperidine [From DEMEROL] Allergy Unknown welts and Verified 11/29/17 09:01 I feel like I am not with it morphine [MORPHINE] Allergy Unknown welts Verified 11/29/17 09:01 neomycin [NEOMYCIN] Allergy Unknown Verified 11/29/17 09:01 nitroglycerin [NITROGLYCERIN] Allergy Unknown my body Verified 11/29/17 09:01 turns all dark blue phenylbutazone Allergy Unknown welts Verified 11/29/17 09:01 [PHENYLBUTAZONE] polymyxin B [POLYMYXIN B] Allergy Unknown Verified 11/29/17 09:01 ranitidine [RANITIDINE] Allergy Unknown welts Verified 11/29/17 09:01 IVP DYE Allergy Unknown MY Uncoded 05/17/17 13:10 FINGERS, FACE SWELL HUGE Review of Systems Review of Systems ROS Unobtainable: All systems reviewed & are unremarkable except as noted in HPI and below Constitutional Denies chills, Denies fever(s), Denies headache(s), Denies lethargy and Denies weakness ENT Ears, Nose, Mouth, and Throat: Denies dizziness, Denies headache(s) and Denies nasal congestion Cardiovascular Denies chest pain, Denies diaphoresis, Denies syncope, Reports edema (chronic in right leg, had lymph nodes removed), Denies irregular heart rhythm, Denies lightheadedness, Denies palpitations, Denies dyspnea, Denies dyspnea on exertion and Denies orthopnea Respiratory Denies change in phlegm color, Denies chest congestion, Denies cough, Denies dyspnea, Denies dyspnea on exertion, Denies stridor and Denies wheezing Gastrointestinal Gastrointestinal: Denies abdominal pain, Denies melena, Denies hematochezia, Denies change in bowel habits, Denies constipation, Denies diarrhea, Denies nausea and Denies vomiting Genitourinary Denies hematuria, Denies urinary frequency, Denies flank pain, Denies urinary incontinence and Denies urinary urgency Musculoskeletal Denies joint swelling and Reports other (itchy rash on leg) Integumentary/Breasts Reports rash and Denies unusual bruising Neurologic Denies dizziness, Denies syncope, Denies headache(s) and Denies weakness Endocrine Denies palpitations Allergic/Immunologic Denies wheezing PFSH Medical History 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) Diabetes mellitus (Acute) History of CVA (cerebrovascular accident) (Acute) Hypercholesterolemia (Acute) Hypertension (Acute) Melanoma (Acute) Meningioma (Acute) Surgical History H/O rotator cuff surgery (Acute) History of appendectomy (Acute) History of bladder suspension procedure (Acute) History of colon resection (Acute) History of tonsillectomy (Acute) History of total knee replacement (Acute) S/P JOSE J-BSO (Acute) Social History household members: spouse Social History household members: spouse Exam Initial Vital Signs Initial Vital Signs: GEN: well nourished, elderly female, alert and oriented x 3, patient appears to be in no acute distress. HEENT: Atraumatic, pupils are equal round reactive to light, extraocular movements are intact, nares are clear, TMs are clear with no fluid, there is no conjunctival pallor. HEART: Regular rate and rhythm without murmur, clicks, rubs. pulses are equal in upper and lower extremities LUNGS:Lungs clear to auscultation, no wheezes, rales, crackles, chest moves symmetrically ABD:bowel sounds normal, soft, non-tender, no guarding, rebound, rigidity, no masses noted, no hepatosplenomegaly :No CVA tenderness MSCL: Nontender, no muscle atrophy, muscles strength 5/5 upper and lower extremities, full range of motion NEURO:CN 2-12 intact, sensation normal SKIN: Patient has multiple small punctate areas that are slightly larger than petechiae her right lower extremity extending from the foot and midway up thigh she has few spots her left dorsum foot there are none on her torso, back or other extremities none noted on her face. They are nonblanching. Patient states that they are pureed ache there are no excoriations patient does not have any other bruising or ecchymosis. Course Orders Ordered: ED Orders 03/16/18 17:32 US periph venous low extrem rt Stat 03/16/18 18:04 Blood Culture Stat Discontinued Medications Prednisone (Deltasone 20 Mg Prepack) 1 bottle MISC SEEINSTR ONE Stop: 03/16/18 18:31 MDM - Skin/Abscess/Foreign Bdy Lab Data Attestation: I reviewed the patient's lab results. Patient's had labs drawn earlier today that shows a hemoglobin of 8.7 with a hematocrit of 27, microcytic with an RDW of 20%. Patient have 11% eosinophils. Patient does have hypochromasia leukocytosis, and this at times some microcytosis. ESR is 72, P TS at 14.8 but INR is 1.3. Sodium is 127 with a chloride of 88, potassium bicarb BUN creatinine are normal. Glucose is 199, total bilirubin and AST ALT alk-phos are normal normal. Calcium is slightly low at 8.2. Patient also has a C reactive protein at 5.2. Blood cultures were also obtained today. Imaging Data Venous US: Radiologist's impression: [address] [address] Ultrasound Report Signed Patient: Brooke Brownlee [facility]#: [id number] : 1935cct:[id number] Age/Sex: 82 / FDate of Service: 03/16/18 Loc: ED Accession Number: [id number] Procedure: US periph venous low extrem rt Ordering Provider: Alison Chávez D.O. PROCEDURE: US PERIPH VENOUS LOW EXTREM RT INDICATIONS: RIGHT LEG PAIN, RASH, MELANOMA TECHNIQUE: Real-time imaging, as well as color and pulse Doppler interrogation, were performed of the lower extremity deep veins from the inguinal ligament to the popliteal fossa. COMPARISON: None. FINDINGS: The deep veins are normally compressible, and free of intraluminal thrombus. Color and pulse Doppler demonstrate normal phasic intraluminal flow. There is normal augmentation response to distal compression maneuver. IMPRESSION: No evidence of deep venous thrombosis Dictated by: Leo Gaston M.D. on 03/16/2018 at 18:27 Approved by: Leo Gaston M.D. on 03/16/2018 at 18:28 [facility] Narrative Medical decision making narrative: Patient's rash Um appears to be petechial. Patient does not have any signs of meningitis, ITP or similar coagulopathy although her PT is slightly elevated her INR is normal. Patient's ESR and CRP are elevated or eosinophils are elevated. She states she has multiple antibiotic allergies and has recently been on antibiotics for several days. Her symptoms started about 2 days ago. It is quite itchy. It is starting to spread to the other foot. She does not have any other signs petechial type changes elsewhere, I suspect she may be having more of an allergic type reaction or immune reaction to her medications. Her hemoglobin has decreased stool occult was negative. Discussed with patient she needs follow-up and to have her hemoglobin rechecked. She is asymptomatic today. Also discussed that there could be another oncologic process that at work. Patient was told to stop her Eliquis by Dr. Clarke, discussed needs repeat hgb and may need endoscopy if continues to have decreasing hgb. Discharge Plan Departure Patient Disposition: Home Clinical Impression: Petechial rash, Anemia Instructions: DI for Petechiae Activity Restrictions/Additional Instructions: Follow up in the next 48 hours with your physician for recheck, repeat CBC to check your hemoglobin. Take benadryl 1-2 tablets every 6-8 hours as needed for itching/symptoms. Take steroids until gone. Continue home medications as prescribed. Stop your Eliquis as directed by Dr. Clarke Return to the ER for fevers greater than 100.4F, rash that is continuing to spread, chest pain, shortness of breath, black or bloody stools, coughing up blood, nose bleeds or other signs of bleeding or new bruising persistent vomiting or other new or concerning symptoms. Prescriptions: New prednisone 10 mg tablets,dose pack See Rx Instructions .ROUTE .COMPLEX Qty: 21 RF: 0 No Action doxepin 50 MG capsule 50 mg PO BEDTIME Qty: 0 RF: 0 Eliquis 5 MG tablet 5 mg PO BID Qty: 0 RF: 0 gabapentin 100 mg Capsule 100 mg PO DAILY RF: 0 furosemide 40 mg tablet 40 mg PO DAILY RF: 0 latanoprost 0.005 % drops 1 drp ophthalmic (eye) BEDTIME RF: 0 metformin 500 mg tablet 500 mg PO BID RF: 0 omeprazole 20 mg capsule,delayed release(DR/EC) 20 mg PO DAILY RF: 0 metoprolol succinate 25 mg tablet extended release 24 hr RF: 0 Combigan 0.2-0.5 % drops 1 drp EYE-BOTH BID RF: 0 Referrals: Rui Clarke MD [Primary Care Provider] -
--- NOTE | 2018-03-16 17:32 | DI.US.S_ITS ---
PROCEDURE: US PERIPH VENOUS LOW EXTREM RT INDICATIONS: RIGHT LEG PAIN, RASH, MELANOMA TECHNIQUE: Real-time imaging, as well as color and pulse Doppler interrogation, were performed of the lower extremity deep veins from the inguinal ligament to the popliteal fossa. COMPARISON: None. FINDINGS: The deep veins are normally compressible, and free of intraluminal thrombus. Color and pulse Doppler demonstrate normal phasic intraluminal flow. There is normal augmentation response to distal compression maneuver. IMPRESSION: No evidence of deep venous thrombosis Dictated by: Leo Gaston M.D. on 03/16/2018 at 18:27 Approved by: Leo Gaston M.D. on 03/16/2018 at 18:28
[2018-03-16] MEDS: predniSONE 20 MG PREPACK 1 BOTTLE MISC (18:46)
[2018-03-16 18:50] VITALS: BP 141/67; PULSE 84; RESP 16; O2SAT 97
[2018-03-16 19:03] VITALS: BP 141/67; PULSE 86; RESP 18; O2SAT 96
== END 2018-03-16 19:21 | disposition home or self-care (01) ==
PROVIDERS: Emergency Provider Emergency Medicine; PCP Internal Medicine
DX: R23.3 Spontaneous ecchymoses (principal); D64.9 Anemia, unspecified
CPT/HCPCS: 36415; 80053; 85025; 85610; 85651; 85730; 86140; 87040; 93971; 99283; 99284

== ENCOUNTER → 2018-04-09 13:11 | Outpatient (CLI) | payer MEDICARE, OTHER, SELFPAY ==
--- NOTE | 2018-04-09 | DI.MG.S_ITS ---
BILATERAL DIGITAL SCREENING MAMMOGRAM 3D/2D WITH CAD: 04/09/2018 CLINICAL: Routine screening. Comparison is made to exams dated: 03/23/2017 mammogram, 03/10/2016 mammogram, and 03/09/2015 mammogram - [facility]. There are scattered fibroglandular elements in both breasts. Current study was also evaluated with a Computer Aided Detection (CAD) system. No significant masses, calcifications, or other findings are seen in either breast. There has been no significant interval change. IMPRESSION: NEGATIVE There is no mammographic evidence of malignancy. A 1 year screening mammogram is recommended. This exam was interpreted at Station ID: [id number]. NOTE: For mammograms, a report in lay terms will be sent to the patient. Approximately 15% of breast malignancies will not be visualized mammographically. In the management of a palpable breast mass, a negative mammogram must not discourage biopsy of a clinically suspicious lesion. Electronically Signed By: Hilton sanchez/claudia:04/09/2018 17:35:45 letter sent: Normal Exam ACR BI-RADS Category 1: Negative [id number]
== END ==
PROVIDERS: PCP Internal Medicine; Visit Provider Internal Medicine
DX: Z12.31 Encounter for screening mammogram for malignant neoplasm of breast (principal)
CPT/HCPCS: 77063; 77067

== ENCOUNTER → 2018-04-12 10:15 | Outpatient (CLI) | payer MEDICARE, OTHER, SELFPAY ==
[2018-04-12 11:24] LABS: INR 1.2 (0.9-1.3)
== END ==
PROVIDERS: PCP Internal Medicine; Visit Provider Internal Medicine
DX: I48.91 Unspecified atrial fibrillation (principal)
CPT/HCPCS: 36415; 85610

== ENCOUNTER → 2018-05-17 15:36 | Outpatient (REF) | payer MEDICARE, OTHER, SELFPAY | LOC: LAB 15:36 | PROVIDERS: PCP Internal Medicine; Visit Provider Internal Medicine | DX: R39.9 Unspecified symptoms and signs involving the genitourinary system (principal) | CPT/HCPCS: 87086 ==

== ENCOUNTER → 2018-05-23 09:08 | Outpatient (CLI) | payer MEDICARE, OTHER, SELFPAY ==
--- NOTE | 2018-05-23 | DI.US.S_ITS ---
PROCEDURE: US ABDOMEN LIMITED INDICATIONS: RIGHT LOWER QUADRANT MASS AND PAIN,LEFT HIP PAIN TECHNIQUE: Real-time focused scanning was performed of the abdomen, with image documentation. COMPARISON: None. FINDINGS: 5.1 x 0.7 x 2.8 cm oblong-shaped hypoechoic focus is present just anterior to the rectus sheath in the area of palpable mass. Doppler assessment demonstrates no vascularity. IMPRESSION: Complex-appearing hypoechoic mass anterior to the rectus muscle involving the right lower quadrant. Findings are nonspecific and could be related to underlying inflammatory or neoplastic mass. As well as evolving hematoma or seroma. Recommend clinical correlation and if indicated CT could be performed. Dictated by: Wyatt BEAVERS Interpreted: Luciano Sanchez MD on 05/23/2018 at 11:39 Approved by: Luciano Sanchez M.D. on 05/23/2018 at 11:47
--- NOTE | 2018-05-23 | DI.RAD.S_ITS ---
PROCEDURE: XR HIP W PEL IF DONE LT 2V INDICATIONS: LEFT HIP PAIN TECHNIQUE: 2 views of the hip were acquired. COMPARISON: None. FINDINGS: Bones: No fractures or dislocations, but there is near severe hip joint osteoarthritis with subchondral cyst formation at the left hip and a moderate degree of such degeneration on the right. 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 No suspicious bony lesions. The visualized pelvic ring appears intact. Soft tissues: No suspicious soft tissue calcifications or masses. IMPRESSION: Asymmetric hip joint osteoarthritis, severe on the left and moderate on the right, no trauma found. Dictated by: Demarcus Cleveland M.D. on 05/23/2018 at 11:52 Approved by: Demarcus Cleveland M.D. on 05/23/2018 at 11:53
== END ==
PROVIDERS: PCP Internal Medicine; Visit Provider Internal Medicine
DX: R19.03 Right lower quadrant abdominal swelling, mass and lump (principal); M25.552 Pain in left hip; M16.0 Bilateral primary osteoarthritis of hip
CPT/HCPCS: 73502; 76705

== ENCOUNTER → 2018-05-25 12:00 | Outpatient (CLI) | payer MEDICARE, OTHER, SELFPAY ==
--- NOTE | 2018-05-25 12:06 | DI.CT.S_ITS ---
PROCEDURE: CT ABDOMEN PELVIS WO CON INDICATIONS: RT LOWER QUADRANT PAIN TECHNIQUE: Noncontrast 5 mm thick sections acquired from the diaphragms to the symphysis. 5 mm coronal and sagittal reformats were then performed. For radiation dose reduction, the following was used: automated exposure control, adjustment of mA and/or kV according to patient size. COMPARISON: [facility], MR, ABDOMEN WITHOUT CONTRAST, 12/16/2014, 8:27. [facility], CT, KIDNEY/ URETER/BLADDER, 08/15/2014, 9:35. [facility], CT, ABDOMEN/PELVIS WITHOUT CONTRAS, 04/09/2013, 14:49. FINDINGS: Image quality: Excellent. ABDOMEN: Lung bases: Lung bases are clear. Heart size is normal. Solid organs: Liver is normal in size. Gallbladder is not seen. Pancreas is normal in contours. Spleen is normal in size. No adrenal nodules. Kidneys are normal in size, without hydronephrosis or nephrolithiasis. A 5 mm proteinaceous cyst is seen at the posterior border of the upper third of the right kidney, having been present in August 2014 also. Peritoneum and bowel: Unenhanced bowel loops demonstrate normal wall thickness and caliber. No free fluid or air. There is an enteric staple line at the right upper quadrant, involving the colon, and presumably by appearance a prior right colectomy has been performed. Nodes and vessels: No retroperitoneal or mesenteric adenopathy by size criteria. Aorta and inferior vena cava are normal in caliber. Miscellaneous: No ventral hernias. PELVIS: Genitourinary: Bladder wall thickness is normal. Uterus is not seen and presumably is surgically absent. Miscellaneous: No inguinal hernias or adenopathy. Bones: No suspicious bony lesions. No vertebral body compression fractures. IMPRESSION: Source of right-sided lower abdominal/pelvic pain not seen. Prior partial right colectomy, no operative complication found. Presumed prior hysterectomy. Sigmoid diverticulosis is noted without acute diverticulitis. Over the abdomen and pelvis no metastatic disease is seen but the study is limited by absence of both oral and intravenous contrast. Incidental lobe made of a small proteinaceous cyst at the superior posterior cortex of the right kidney, also present in August 2014. Dictated by: Demarcus Cleveland M.D. on 05/25/2018 at 14:26 Approved by: Demarcus Cleveland M.D. on 05/25/2018 at 14:29
== END ==
PROVIDERS: PCP Internal Medicine; Visit Provider Internal Medicine
DX: R10.31 Right lower quadrant pain (principal); N28.1 Cyst of kidney, acquired; K57.30 Diverticulosis of large intestine without perforation or abscess without bleeding; Z90.49 Acquired absence of other specified parts of digestive tract
CPT/HCPCS: 74176

== ENCOUNTER → 2018-06-26 14:38 | Outpatient (ROUT) | payer MEDICARE, OTHER, SELFPAY ==
[2018-06-27 17:02] LABS: Appearance Urine UA CLEAR; Bilirubin Urine UA NEGATIVE (NEGATIVE); Color Urine UA YELLOW; Glucose Urine UA NEGATIVE (Negative); Ketones Urine UA NEGATIVE (NEGATIVE); Leukocyte Esterase Urine UA TRACE (NEGATIVE); Nitrite Urine UA NEGATIVE (Negative); Occult Blood Urine UA 1+ (Negative); Protein Urine UA NEGATIVE (Negative); Specific Gravity Urine UA 1.015 (1.000-1.035); Urobilinogen Urine UA 0.2 E.U./dL (0.2)
[2018-06-27 17:20] LABS: Bacteria Urine Occasional (0-1); RBC Urine 5-10/HPF (0-5/HPF); WBC Urine 5-10/HPF (0-5/HPF)
[2018-06-27 17:21] LABS: Culture Indicated Urine Specimen Cultured
== END ==
PROVIDERS: PCP Internal Medicine; Visit Provider Internal Medicine
DX: N39.0 Urinary tract infection, site not specified (principal)
CPT/HCPCS: 81001; 87077; 87086; 87186

== ENCOUNTER 2018-08-19 15:10 | Emergency (ER) | payer MEDICARE, OTHER, SELFPAY ==
--- NOTE | 2018-08-19 15:16 | DI.CT.S_ITS ---
PROCEDURE: CT HEAD/BRAIN WO CON INDICATIONS: Ground-level fall on anticoagulation TECHNIQUE: Noncontrast 4.5 mm thick angled axial sections acquired from the foramen magnum to the vertex, with coronal and sagittal reformats. For radiation dose reduction, the following was used: automated exposure control, adjustment of mA and/or kV according to patient size. COMPARISON: [facility], MR, BRAIN W&WO C[NTRAST, 07/17/2014, 10:38. [facility], CT, FACIAL BONES WITHOUT CONTRAST, 01/09/2013, 14:26. [facility], CT, HEAD WITHOUT CONTRAST, 01/09/2013, 14:26. FINDINGS: Image quality: Excellent. CSF spaces: Basal cisterns are patent. A right posterior fossa arachnoid cyst can be seen. The ventricles are symmetric in size and shape. Brain: No intracranial bleeds or masses. There is cerebral volume loss for age, with resultant ventricular and sulcal prominence. There are periventricular and deep white matter chronic small vessel ischemic changes. There is intracranial internal carotid artery atherosclerosis. Skull and face: Craniectomy changes are seen on the left inferiorly and posteriorly. Calvarium and visualized facial bones appear intact, without suspicious lesions. Incidental note is made of hyperostosis frontalis. This is not considered to be pathologic in a woman of this age. Sinuses: Visualized sinuses and mastoids are clear. IMPRESSION: Normal intracranial study for age, without acute intracranial hemorrhage. Left inferior posterior craniectomy changes are again seen. Note is made of age-appropriate brain parenchymal volume loss and chronic small vessel ischemic changes. Dictated by: Luciano Barton M.D. on 08/19/2018 at 14:54 Approved by: Luciano Barton M.D. on 08/19/2018 at 14:56
[2018-08-19 15:18] VITALS: BP 153/73; PULSE 73; RESP 21; TEMP 36.7; O2SAT 98
[2018-08-19 15:30] VITALS: BP 123/72; PULSE 73; O2SAT 95
--- NOTE | 2018-08-19 15:49 | PC.NURSE ---
Family states pt tripped over family dog, landed on face. Has pain over right eyebrow, bridge of nose with swelling, Laceration to right lower lip with small lac just below lip. States pain in jaw with movement and pain in chin. Denies any pain or tenderness in any other location. Able to stand and use commode, denied any dizziness.
[2018-08-19 16:04] LABS: Bacteria Urine None Seen
[2018-08-19 16:13] LABS: Amorphous Sediment Urine 1+; Culture Indicated Urine Cult Not Indicated; RBC Urine 0-1/HPF (0-5/HPF); Squamous Epithelial Cell Urine 0-1 /HPF (0-5/HPF); WBC Urine 0-1/HPF (0-5/HPF)
--- NOTE | 2018-08-19 16:19 | DI.CT.S_ITS ---
PROCEDURE: CT FACIAL BONES WO CON INDICATIONS: pain and swelling after fall TECHNIQUE: Noncontrast 2.5 mm thick axial images acquired from the mandible through the frontal sinuses, with coronal and sagittal reformatting. For radiation dose reduction, the following was used: automated exposure control, adjustment of mA and/or kV according to patient size. COMPARISON: [facility], CT, CT HEAD/BRAIN WO CON, 08/19/2018, 15:25. [facility], CT, FACIAL BONES WITHOUT CONTRAST, 01/09/2013, 14:26. FINDINGS: Image quality: Diagnostic, with note made of streak artifact from the patient's dental hardware. Bones and teeth: Orbital funk are intact. Sinus funk show no fracture or deformity. Nasal bones and septum are intact. Chronic moderate rightward nasal septal deviation can be seen. Visualized portions of the mandible demonstrate no fractures or subluxation. Zygomatic arches are intact. Pterygoid plates are intact. Visualized portions of the skull base and auditory canals are intact. Incidental note is made of hyperostosis frontalis. This is not considered to be pathologic in a woman of this age. Relatively prominent cervical spine degenerative changes are incidentally noted. Sinuses: Mild mucosal thickening can be seen involving the inferior left maxillary sinus. Paranasal sinuses are aerated, without additional fluid levels, mucosal thickening, or mucoceles. Mastoid air cells are aerated. Soft tissues: No edema, masses, or fluid collections. No enlarged lymph nodes. No soft tissue lacerations or debris. Vascular: Visualized vascular structures appear normal in the absence of contrast. Bony vascular foramina and canals are intact. IMPRESSION: No acute facial bone fracture can be seen. Dictated by: Luciano Barton M.D. on 08/19/2018 at 16:31 Approved by: Luciano Barton M.D. on 08/19/2018 at 16:33
--- NOTE | 2018-08-19 17:22 | ED_ITS ---
HPI - Fall General Chief Complaint: Trauma Stated Complaint: fall, hit face, lwr lip wound, and nose pain Time Seen by Provider: 08/19/18 16:07 Source: patient and family Mode of arrival: ambulatory Limitations: no limitations History of Present Illness HPI Narrative: Patient comes emergency department after tripping over her dog and falling in the kitchen while cooking. Patient's family states that they could not arouse the patient for several seconds after the fall, but then she was able wake up. However, she was not able to get up on her own, so they called the medics, who helped the patient up. Patient states she was able walk after being helped up and denies being injured anywhere besides her face. Patient denies any headache. No neck pain. No extremity pain. No hip pain. No shortness of breath or chest pain. No abdominal pain. No nausea or vomiting. No visual changes. No other complaints at this time. Patient states she tripped over the dog, and did not have a spontaneous syncopal episode. Related Data Home Medications Medication Instructions Recorded Confirmed doxepin 50 mg PO BEDTIME #0 03/18/12 03/16/18 Eliquis 5 mg PO BID #0 05/23/17 03/16/18 gabapentin 100 mg PO DAILY 12/13/17 03/16/18 brimonidine-timolol [Combigan] 1 drp EYE-BOTH BID 03/16/18 03/16/18 furosemide 40 mg PO DAILY 03/16/18 latanoprost 1 drp OPHTHALMIC (EYE) BEDTIME 03/16/18 03/16/18 metformin 500 mg PO BID 03/16/18 03/16/18 metoprolol succinate 03/16/18 omeprazole 20 mg PO DAILY 03/16/18 03/16/18 Previous Rx's Medication Instructions Recorded prednisone See Rx Instructions .ROUTE 03/16/18 .COMPLEX #21 each Allergies Allergy/AdvReac Type Severity Reaction Status Date / Time Penicillins [PENICILLINS] Allergy Severe fingers Verified 11/29/17 09:01 and face swell Sulfa (Sulfonamide Allergy Severe I BREAK Verified 11/29/17 09:01 Antibiotics) OUT IN WELTS aspirin [ASPIRIN] Allergy Unknown welts Verified 11/29/17 09:01 bacitracin [BACITRACIN] Allergy Unknown Verified 11/29/17 09:01 codeine [CODEINE] Allergy Unknown makes my Verified 11/29/17 09:01 stomach ache and throw up dicyclomine [DICYCLOMINE] Allergy Unknown welts Verified 11/29/17 09:01 diltiazem [DILTIAZEM] Allergy Unknown welts Verified 11/29/17 09:01 ibuprofen [IBUPROFEN] Allergy Unknown my heart Verified 11/29/17 09:01 races off the paper levofloxacin [LEVOFLOXACIN] Allergy Unknown rash Verified 11/29/17 09:01 meperidine [From DEMEROL] Allergy Unknown welts and Verified 11/29/17 09:01 I feel like I am not with it morphine [MORPHINE] Allergy Unknown welts Verified 11/29/17 09:01 neomycin [NEOMYCIN] Allergy Unknown Verified 11/29/17 09:01 nitroglycerin [NITROGLYCERIN] Allergy Unknown my body Verified 11/29/17 09:01 turns all dark blue phenylbutazone Allergy Unknown welts Verified 11/29/17 09:01 [PHENYLBUTAZONE] polymyxin B [POLYMYXIN B] Allergy Unknown Verified 11/29/17 09:01 ranitidine [RANITIDINE] Allergy Unknown welts Verified 11/29/17 09:01 IVP DYE Allergy Unknown MY Uncoded 05/17/17 13:10 FINGERS, FACE SWELL HUGE Review of Systems Constitutional Denies chills, Denies fever(s), Denies lethargy and Denies weakness Eyes Denies change in vision, Denies eye discharge, Denies irritation and Denies loss of vision ENT Ears, Nose, Mouth, and Throat: Denies change in voice, Denies neck pain and Denies sore throat Comments: Lip laceration Cardiovascular Denies chest pain, Denies irregular heart rhythm, Denies lightheadedness, Denies palpitations, Denies dyspnea, Denies dyspnea on exertion and Denies orthopnea Respiratory Denies cough, Denies dyspnea, Denies dyspnea on exertion and Denies wheezing Gastrointestinal Gastrointestinal: Denies abdominal pain, Denies change in bowel habits, Denies diarrhea, Denies nausea and Denies vomiting Genitourinary Denies hematuria, Denies flank pain, Denies urinary incontinence and Denies urinary urgency Musculoskeletal Denies neck pain Integumentary/Breasts Denies pruritus, Denies erythema, Denies rash and Denies wounds Neurologic Denies confusion, Denies loss of vision and Denies weakness Psychiatric Denies anxiety, Denies confusion, Denies depression, Denies homicidal ideation and Denies suicidal ideation Endocrine Denies palpitations Hematologic/Lymphatic Denies easy bruising Allergic/Immunologic Denies wheezing Exam Initial Vital Signs Initial Vital Signs: Vital Signs Temperature 98.0 F 08/19/18 15:18 Pulse Rate 73 08/19/18 15:18 Respiratory Rate 21 08/19/18 15:18 Blood Pressure 153/73 H 08/19/18 15:18 Pulse Oximetry 98 08/19/18 15:18 Const General: cooperative and well developed Nutritional Appearance: well nourished Orientation: alert, awake, oriented x3 and not confused [facility] Head: normocephalic and atraumatic Ears: external ears normal Nose: external nose normal and No nasal discharge Face and sinus: sinuses nontender, face symmetric, no sinus tenderness and No dry mucous membranes Mouth: oral mucosae normal and moist mucous membranes Teeth and gingiva: dentition normal, gingiva normal and other (1.5 cm stellate laceration midline lower lip) Eyes General: appearance normal, both eyes and all related structures Eyelids: eyelids normal Conjunctivae: conjunctivae normal Sclera: sclerae normal Pupils: PERRL EOM: EOM intact bilaterally Neck Neck: normal visual inspection, trachea midline, No lymphadenopathy, No midline deformity and No JVD Lymphatic: No lymphedema Chest Chest: normal inspection of the chest Resp Effort & Inspection: normal respiratory effort, able to speak in complete sentences, no respiratory distress and no use of accessory muscles Auscultation: clear to auscultation bilaterally, no rales, no rhonchi and no wheezes Cardio Rate: regular rate Rhythm: regular rhythm Heart Sounds: no click, no gallops, no murmurs and no rubs Pulses: normal peripheral pulses GI Inspection: non-distended Palpation: soft, no hepatosplenomegaly, No guarding, No pulsatile mass and No tender Auscultation: normal bowel sounds Back/Spine/Pelvis Back: No CVA tenderness Cervical Spine: cervical ROM normal and No pain with cervical ROM Thoracic/Lumbar Spine: thoracic and lumbar spine normal to inspection Skin General: no rashes or lesions noted, No jaundice and No petechiae Neuro General: alert, oriented x3, gait normal and no focal motor deficits Speech: speech normal Extrem General: full ROM, no clubbing, cyanosis or edema, no pedal edema and no calf tenderness Psych Appearance: well kempt Mental Status: mental status grossly normal Attitude: cooperative Thought Content: normal and suicidality Judgment: judgment good [facility] Medical History Current use of long-term anticoagulation (Acute) Diabetes mellitus (Acute) History of CVA (cerebrovascular accident) (Acute) Hypercholesterolemia (Acute) Hypertension (Acute) Melanoma (Acute) Meningioma (Acute) Surgical History H/O rotator cuff surgery (Acute) History of appendectomy (Acute) History of bladder suspension procedure (Acute) History of colon resection (Acute) History of tonsillectomy (Acute) History of total knee replacement (Acute) S/P JOSE J-BSO (Acute) Social History household members: spouse Social History household members: spouse Procedures Laceration Repair Laceration 1: Site: lip Size (cm): 1.5 Description: stellate Depth: simple, single layer Local Anesthetic: lidocaine 1% Amount of anesthesia used (mL): 2 Pre-repair: wound explored and deep structures intact Skin layer closed with: vicryl Size (cm): 5-0 Number of sutures: 3 Technique: simple, interrupted Course Course Narrative: Patient was well appearing overall. She was worked up with CTs of her head and face, which were unremarkable. Laceration was repaired, as noted above. I did feel the patient was stable for discharge home. We have discussed home management of the wound, the absorbable nature of the sutures, and the usual indications for return. Orders Ordered: ED Orders 08/19/18 15:16 CT head/brain wo con Stat 08/19/18 16:00 Urine Microscopic Stat 08/19/18 16:19 CT facial bones wo con Stat Discontinued Medications Acetaminophen (Tylenol) 650 mg PO NOW ONE Stop: 08/19/18 18:16 Vital Signs - 8 hr 08/19/18 15:18 08/19/18 15:30 Temperature 98.0 F Pulse Rate 73 73 Respiratory Rate 21 Blood Pressure 153/73 H Blood Pressure [Right Arm] 123/72 Pulse Oximetry 98 95 MDM - Fall Medical Records Attestation: I reviewed the patient's medical records. Lab Data Lab Results 08/19/18 Range/Units 16:00 Urine RBC 0-1/hpf (0-5/HPF) Urine WBC 0-1/hpf (0-5/HPF) Ur Squamous Epith Cells 0-1 /hpf (0-5/HPF) Amorphous Sediment 1+ Urine Bacteria None seen (None) Ur Culture Indicated? Cult not indicated Imaging Data CT scan - head: Radiologist's impression: PROCEDURE: CT HEAD/BRAIN WO CON INDICATIONS: Ground-level fall on anticoagulation TECHNIQUE: Noncontrast 4.5 mm thick angled axial sections acquired from the foramen magnum to the vertex, with coronal and sagittal reformats. For radiation dose reduction, the following was used: automated exposure control, adjustment of mA and/or kV according to patient size. COMPARISON: [facility], MR, BRAIN W&WO C[NTRAST, 07/17/2014, 10:38. [facility], CT, FACIAL BONES WITHOUT CONTRAST, 01/09/2013, 14:26. [facility], CT, HEAD WITHOUT CONTRAST, 01/09/2013, 14:26. FINDINGS: Image quality: Excellent. CSF spaces: Basal cisterns are patent. A right posterior fossa arachnoid cyst can be seen. The ventricles are symmetric in size and shape. Brain: No intracranial bleeds or masses. There is cerebral volume loss for age, with resultant ventricular and sulcal prominence. There are periventricular and deep white matter chronic small vessel ischemic changes. There is intracranial internal carotid artery atherosclerosis. Skull and face: Craniectomy changes are seen on the left inferiorly and posteriorly. Calvarium and visualized facial bones appear intact, without suspicious lesions. Incidental note is made of hyperostosis frontalis. This is not considered to be pathologic in a woman of this age. Sinuses: Visualized sinuses and mastoids are clear. IMPRESSION: Normal intracranial study for age, without acute intracranial hemorrhage. Left inferior posterior craniectomy changes are again seen. Note is made of age-appropriate brain parenchymal volume loss and chronic small vessel ischemic changes. Dictated by: Luciano Barton M.D. on 08/19/2018 at 14:54 Approved by: Luciano Barton M.D. on 08/19/2018 at 14:56 CT face: Radiologist's impression: PROCEDURE: CT FACIAL BONES WO CON INDICATIONS: pain and swelling after fall TECHNIQUE: Noncontrast 2.5 mm thick axial images acquired from the mandible through the frontal sinuses, with coronal and sagittal reformatting. For radiation dose reduction, the following was used: automated exposure control, adjustment of mA and/or kV according to patient size. COMPARISON: [facility], CT, CT HEAD/BRAIN WO CON, 08/19/2018, 15:25. [facility], CT, FACIAL BONES WITHOUT CONTRAST, 01/09/2013, 14:26. FINDINGS: Image quality: Diagnostic, with note made of streak artifact from the patient's dental hardware. Bones and teeth: Orbital funk are intact. Sinus funk show no fracture or deformity. Nasal bones and septum are intact. Chronic moderate rightward nasal septal deviation can be seen. Visualized portions of the mandible demonstrate no fractures or subluxation. Zygomatic arches are intact. Pterygoid plates are intact. Visualized portions of the skull base and auditory canals are intact. Incidental note is made of hyperostosis frontalis. This is not considered to be pathologic in a woman of this age. Relatively prominent cervical spine degenerative changes are incidentally noted. Sinuses: Mild mucosal thickening can be seen involving the inferior left maxillary sinus. Paranasal sinuses are aerated, without additional fluid levels, mucosal thickening, or mucoceles. Mastoid air cells are aerated. Soft tissues: No edema, masses, or fluid collections. No enlarged lymph nodes. No soft tissue lacerations or debris. Vascular: Visualized vascular structures appear normal in the absence of contrast. Bony vascular foramina and canals are intact. IMPRESSION: No acute facial bone fracture can be seen. Dictated by: Luciano Barton M.D. on 08/19/2018 at 16:31 Approved by: Luciano Barton M.D. on 08/19/2018 at 16:33 Discharge Plan Departure Patient Disposition: Home Clinical Impression: Laceration of lip Qualifiers: Encounter type: initial encounter Qualified Code(s): S01.511A - Laceration without foreign body of lip, initial encounter Contusion of face Qualifiers: Encounter type: initial encounter Qualified Code(s): S00.83XA - Contusion of other part of head, initial encounter Fall Qualifiers: Encounter type: initial encounter Qualified Code(s): W19.XXXA - Unspecified fall, initial encounter Discharge Date/Time: 08/19/18 18:40 Interventions: ED Discharge Assessment Last Done: 08/19/18 18:39 Instructions: DI for Laceration Repair Activity Restrictions/Additional Instructions: Your lip laceration has been repaired with absorbable sutures. This means that you do not need to have the sutures removed if you do not want to. If you get tired of the sutures, and has been at least 5 days, you may have been taken out by your doctor if you wish. Your CT scans look good, and did not show any evidence of serious trauma. You may take Tylenol if needed for pain. Prescriptions: No Action doxepin 50 MG capsule 50 mg PO BEDTIME Qty: 0 RF: 0 Eliquis 5 MG tablet 5 mg PO BID Qty: 0 RF: 0 gabapentin 100 mg Capsule 100 mg PO DAILY RF: 0 furosemide 40 mg tablet 40 mg PO DAILY RF: 0 latanoprost 0.005 % drops 1 drp ophthalmic (eye) BEDTIME RF: 0 metformin 500 mg tablet 500 mg PO BID RF: 0 omeprazole 20 mg capsule,delayed release(DR/EC) 20 mg PO DAILY RF: 0 metoprolol succinate 25 mg tablet extended release 24 hr RF: 0 Combigan 0.2-0.5 % drops 1 drp EYE-BOTH BID RF: 0 prednisone 10 mg tablets,dose pack See Rx Instructions .ROUTE .COMPLEX Qty: 21 RF: 0 Referrals: Rui Clarke MD [Primary Care Provider] -
== END 2018-08-19 18:40 | disposition home or self-care (01) ==
PROVIDERS: Emergency Provider Emergency Medicine; PCP Internal Medicine
DX: S01.511A Laceration without foreign body of lip, initial encounter (principal); S00.83XA Contusion of other part of head, initial encounter; W01.0XXA Fall on same level from slipping, tripping and stumbling without subsequent striking against object, initial encounter
CPT/HCPCS: 70450; 70486; 81015; 99283; 99284

== ENCOUNTER → 2018-08-21 11:29 | Outpatient (CLI) | payer MEDICARE, OTHER, SELFPAY ==
[2018-08-21 12:14] LABS: Add Manual Diff / Slide Review NO; Basophils Absolute Auto 100 /uL (0-100); Basophils Percent Auto 1.3 % (0-2); Eosinophils Absolute Auto 100 /uL (0-450); Eosinophils Percent Auto 2.8 % (2-4); Hematocrit 37.6 % (36-46); Hemoglobin 12.3 g/dL (12.0-16.0); Lymphocytes Absolute Auto 1000 /uL (1100-4500); Lymphocytes Percent Auto 18.6 % (25-40); Mean Corpuscular HGB Conc 32.8 % (30-36); Mean Corpuscular Hemoglobin 28.3 PG (26-34); Mean Corpuscular Volume 86.4 fL (80-100); Monocytes Absolute Auto 500 /uL (0-900); Monocytes Percent Auto 8.8 % (3-14); Neutrophils Absolute Auto 3500 /uL (1500-7000); Neutrophils Percent Auto 68.5 % (50-75); Platelet Count 120 X10^3/uL (150-400); Red Blood Cell Count 4.35 X10^6/uL (4.0-5.2); Red Cell Distribution Width 17.2 % (11.6-14.8); White Blood Cell Count 5.2 X10^3/uL (4.5-11.0)
[2018-08-21 12:32] LABS: Hemoglobin A1C% w Est Avg Glu 6.4 % (4.0-6.0)
[2018-08-21 13:09] LABS: Alanine Aminotransferase 15 IU/L (9-52); Albumin 3.6 g/dL (3.5-5.0); Albumin Globulin Ratio 1.5 (1.0-2.8); Alkaline Phosphatase 92 U/L (38-126); Aspartate Aminotransferase 19 IU/L (14-36); BUN Creatinine Ratio 13.3 (6-22); Bilirubin Total 0.4 mg/dL (0.2-1.3); Blood Urea Nitrogen 8 mg/dL (7-17); Calcium 8.9 mg/dL (8.4-10.2); Carbon Dioxide 28 mmol/L (22-32); Chloride 99 mmol/L (98-107); Estimated Glomerular Filt Rate > 60.0 mL/min (>60); Globulin 2.4 g/dL (1.7-4.1); Glucose 176 mg/dL (80-110); HEMOLYSIS < 15 (0-50); Iron 89 ug/dL (37-170); Potassium 4.2 mmol/L (3.4-5.1); Sodium 136 mmol/L (137-145)
[2018-08-21 13:21] LABS: Percent Iron Saturation 30 % (15-50); Total Iron Binding Capacity 295 ug/dL (265-497); Transferrin 254 mg/dL (206-381)
[2018-08-21 13:40] LABS: Thyroid Stimulating Hormone 3.68 uIU/mL (0.47-4.68)
[2018-08-21 13:44] LABS: Ferritin 49.9 ng/mL (11.1-264)
[2018-08-23 14:19] LABS: Triiodothyronine T3 Total 116 ng/dL (76-181)
== END ==
PROVIDERS: PCP Internal Medicine; Visit Provider Internal Medicine
DX: D64.9 Anemia, unspecified (principal); R53.83 Other fatigue; E11.8 Type 2 diabetes mellitus with unspecified complications; E03.9 Hypothyroidism, unspecified
CPT/HCPCS: 36415; 80053; 82728; 83036; 83540; 83550; 84439; 84443; 84480; 85025

== ENCOUNTER → 2018-09-13 11:07 | Outpatient (CLI) | payer MEDICARE, OTHER, SELFPAY ==
[2018-09-13 12:22] LABS: Blood Urea Nitrogen 12 mg/dL (7-17); Calcium 9.5 mg/dL (8.4-10.2); Carbon Dioxide 27 mmol/L (22-32); Chloride 100 mmol/L (98-107); Estimated Glomerular Filt Rate > 60.0 mL/min (>60); Glucose 201 mg/dL (80-110); HEMOLYSIS < 15 (0-50); Potassium 4.3 mmol/L (3.4-5.1); Sodium 139 mmol/L (137-145)
== END ==
PROVIDERS: PCP Internal Medicine; Visit Provider Internal Medicine Cardiovascular Disease
DX: I48.0 Paroxysmal atrial fibrillation (principal)
CPT/HCPCS: 36415; 80048

== ENCOUNTER → 2018-10-03 11:10 | Outpatient (CLI) | payer MEDICARE, OTHER, SELFPAY ==
[2018-10-03 13:37] LABS: Blood Urea Nitrogen 12 mg/dL (7-17); Calcium 9.3 mg/dL (8.4-10.2); Carbon Dioxide 26 mmol/L (22-32); Chloride 97 mmol/L (98-107); Estimated Glomerular Filt Rate > 60.0 mL/min (>60); Glucose 218 mg/dL (80-110); HEMOLYSIS < 15 (0-50); Potassium 4.1 mmol/L (3.4-5.1); Sodium 137 mmol/L (137-145)
== END ==
PROVIDERS: PCP Internal Medicine; Visit Provider Internal Medicine Cardiovascular Disease
DX: I48.0 Paroxysmal atrial fibrillation (principal)
CPT/HCPCS: 36415; 80048

== ENCOUNTER → 2018-10-12 07:05 | Outpatient (CLI) | payer MEDICARE, OTHER, SELFPAY ==
--- NOTE | 2018-10-12 08:47 | PM.TREADMILL ---
Cardiac Stress Test Report Referral & Results Date Patient Seen: 10/12/18 Time Patient Seen: 08:30 Requesting provider: Thalia Felix Indication: Syncope Rest ECG: NSR Procedure Note: After both written and verbal informed consent the patient had an IV started by the diagnostic imaging RN, and then was hooked up to the treadmill monitoring system. The Lexiscan material, and then the Cardiolite tracer, were administered sequentially. An additional 3 min was spent monitoring the patient while supine on the gurney. The patient had a normal response to all infused materials. Impression: Successful Apolonia protocol. Will await perfusion imaging. Please note: Actual ECG tracings can be found in the PACS system.
--- NOTE | 2018-10-17 11:03 | DI.NM.S_ITS ---
DATE OF SERVICE: 10/15/2018 PROCEDURE: Pharmacological perfusion study. INDICATIONS: Syncope with underlying paroxysmal atrial fibrillation, hypertension.. RADIOPHARMACEUTICAL: 23.0 mCi technetium-99m Myoview IV was injected at stress and 25.7 mCi technetium-99m Myoview IV was injected at rest. CARDIAC STRESS: Patient underwent IV Lexiscan perfusion study under the supervision of an attending staff using standard IV Lexiscan protocol. Patient remained hemodynamically stable. Baseline rhythm was sinus with poor R-wave progression. Stress EKG did not reveal any obvious inducible ischemic changes. There were no significant arrhythmias seen. No symptoms were reported. RAW DATA: There was breast shadow seen. GATED STUDY: Stress LV ejection fraction 94% without any obvious wall motion abnormalities. There is no transient ischemic dilatation. TID ratio is 0.96, which is within normal limits. Resting end-diastolic volume is 65 mL. Lung/heart ratio is 0.34, which is within normal limits. MYOCARDIAL PERFUSION SCAN: Stress supine and resting supine images were compared to each other. Patient has normal myocardial perfusion. CONCLUSION: This is a normal myocardial perfusion study without any evidence of ischemia infarction. Overall, this is a low-risk myocardial perfusion study. Patient had exercise perfusion study in 09/2007. At that time also she had normal myocardial perfusion. Brooke Brownlee - DIANNA/jordyn/ doc#: [id number]/job#: [id number] dd: 10/15/2018 16:29:00 dt: 10/15/2018 17:12:00 DICTATING /COPIES TO: Thalia Felix MD COPIES MNE: ISABEL
== END ==
PROVIDERS: PCP Internal Medicine; Visit Provider Internal Medicine Cardiovascular Disease
DX: R55 Syncope and collapse (principal); I48.0 Paroxysmal atrial fibrillation
CPT/HCPCS: 78452; 93016; 93017; 93018; A9502; J2785

== ENCOUNTER → 2018-10-15 15:08 | Outpatient (CLI) | payer MEDICARE, OTHER, SELFPAY ==
--- NOTE | 2018-10-15 | DI.ECHO.S_ITS ---
[place] [facility]---------[facility] +---------+ : : [address] : [place] [address] : : : : [id number] : : : : Phone: [phone]---------+ Echocardiogram Report + + :Name: MORALES HERNÁNDEZ Study Date: 10/15/2018 Height: 62 in : :[facility] Weight: 174 lb : : Gender: Female BSA: 1.8 m2 : :: 1935 Age: 82 yrs BP: 154/74 mmHg: :Reason For Study: Syncope : : Performed By: Anny Rojo : :Referring: CHARLES RASHEED : + + Interpretation Summary The left ventricle is normal in size. The ejection fraction is estimated to be 65-70%.There is no echo evidence for significant left ventricular outflow tract obstruction. The right ventricle is grossly normal size. The right ventricular systolic function is normal. There is mild mitral regurgitation. There is mild tricuspid regurgitation. The right ventricular systolic pressure is estimated to be at least 33 mmHg based on an estimated right atrial pressure of 3 mm Hg. The ascending aorta is mildly enlarged. Mild atherosclerotic plaque(s) in the aortic arch. Procedure: A two-dimensional transthoracic echocardiogram with color flow and Doppler was performed. The study quality was technically adequate. Comparison is made with the echocardiogram of 12-30-15. The patient was in normal sinus rhythm during the exam. The patient had a bundle branch block rhythm during the exam. Left Ventricle: The left ventricle is normal in size. Proximal septal thickening is noted. There is no echo evidence for significant left ventricular outflow tract obstruction. There is no thrombus. The ejection fraction is estimated to be 65-70%. Septal motion is consistent with conduction abnormality. MV E/A: 0.72 Med Peak E' Seb: 4.5 cm/sec E/E' med: 17.5. Right Ventricle: The right ventricle is grossly normal size. The right ventricular systolic function is normal. Atria: The left atrial size is normal. Right atrial size is normal. The interatrial septum is intact with no evidence for an atrial septal defect. Mitral Valve: The mitral valve is grossly normal. There is mild mitral regurgitation. Aortic Valve: The aortic valve is trileaflet. The aortic valve opens well. There is no aortic valve stenosis. No aortic regurgitation is present. Tricuspid Valve: The tricuspid valve is normal. The right ventricular systolic pressure is estimated to be at least 33 mmHg based on an estimated right atrial pressure of 3 mm Hg. There is mild tricuspid regurgitation. Pulmonic Valve: The pulmonic valve is not well seen, but is grossly normal. There is trace pulmonic regurgitation. Great Vessels: The aortic root is normal size. The ascending aorta is mildly enlarged. Mild atherosclerotic plaque(s) in the aortic arch. The IVC is of normal diameter and collapses greater than 50% with a sniff. This suggests a low right atrial pressure of 3 mm Hg. Pericardium/ Pleura There is no pericardial effusion. There is an anterior echo-free space consistent with a fat pad. There is no pleural effusion. MMode/2D Measurements & Calculations LVIDd: 5.1 cm Ao root diam: 3.4 cm LVIDs: 2.4 cm Aortic Jxn: 3.0 cm FS: 53.4 % asc Aorta Diam: 3.6 cm IVSd: 0.90 cm Ao Arch Diam (Prox Trans): 3.0 cm LVPWd: 0.78 cm LV sal. diameter/BSA (cm/m^2): 2.8 LV sys. diameter/BSA (cm/m^2): 1.3 LA dimension: 3.5 cm RA long axis: 4.8 cm LA A2 area: 18.7 cm2 RA area: 15.4 cm2 LA A4 area: 17.5 cm2 RA vol: 42.2 ml LA length (vol): 4.8 cm RA : 23.4 ml/m2 LA vol: 57.3 ml RVDd major: 5.8 cm LA vol index: 31.8 ml/m2 RVD1 (basal): 3.6 cm LA Length_phl: 4.8 cm RVD2 (mid): 2.9 cm Doppler Measurements & Calculations Ao V2 max: 140.1 cm/sec MV E max seb: 79.4 cm/sec Ao V2 mean: 83.6 cm/sec MV A max seb: 110.2 cm/sec Ao max P.9 mmHg MV E/A: 0.72 Ao mean P.4 mmHg Med Peak E' Seb: 4.5 cm/sec Ao V2 VTI: 28.3 cm E/E' med: 17.5 Lat Peak E' Seb: 7.5 cm/sec E/E' lat: 10.6 E/e' average: 14.1 MV dec time: 0.26 sec MV P1/2t: 76.1 msec TR max seb: 275.4 cm/sec MV P1/2t max seb: 78.9 cm/sec TR max P.3 mmHg MVA(P1/2t): 2.9 cm2 PA V2 max: 78.6 cm/sec PA V2 mean: 50.8 cm/sec PA mean P.2 mmHg PA Accel Time: 0.15 sec Reading Physician:10:45 AM
== END ==
PROVIDERS: PCP Internal Medicine; Visit Provider Internal Medicine Cardiovascular Disease
DX: I08.1 Rheumatic disorders of both mitral and tricuspid valves (principal); R55 Syncope and collapse; I77.89 Other specified disorders of arteries and arterioles; I70.0 Atherosclerosis of aorta
CPT/HCPCS: 93306

== ENCOUNTER → 2018-11-14 10:54 | Outpatient (CLI) | payer MEDICARE, OTHER, SELFPAY ==
[2018-11-14 11:26] LABS: Add Manual Diff / Slide Review NO; Basophils Absolute Auto 0 /uL (0-100); Basophils Percent Auto 0.6 % (0-2); Eosinophils Absolute Auto 400 /uL (0-450); Eosinophils Percent Auto 8.9 % (2-4); Hematocrit 40.5 % (36-46); Hemoglobin 13.2 g/dL (12.0-16.0); Lymphocytes Absolute Auto 1000 /uL (1100-4500); Mean Corpuscular HGB Conc 32.7 % (30-36); Mean Corpuscular Hemoglobin 29.3 PG (26-34); Mean Corpuscular Volume 89.5 fL (80-100); Monocytes Absolute Auto 400 /uL (0-900); Monocytes Percent Auto 9.6 % (3-14); Neutrophils Absolute Auto 2800 /uL (1500-7000); Neutrophils Percent Auto 59.9 % (50-75); Platelet Count 135 X10^3/uL (150-400); Red Blood Cell Count 4.52 X10^6/uL (4.0-5.2); Red Cell Distribution Width 14.9 % (11.6-14.8); White Blood Cell Count 4.6 X10^3/uL (4.5-11.0)
[2018-11-14 11:34] LABS: BUN Creatinine Ratio 12.9 (6-22); Blood Urea Nitrogen 9 mg/dL (7-17); Calcium 9.2 mg/dL (8.4-10.2); Carbon Dioxide 29 mmol/L (22-32); Chloride 101 mmol/L (98-107); Estimated Glomerular Filt Rate > 60.0 mL/min (>60); Glucose 183 mg/dL (80-110); HEMOLYSIS 21 (0-50); Magnesium 1.8 mg/dL (1.6-2.3); Potassium 4.9 mmol/L (3.4-5.1); Sodium 138 mmol/L (137-145)
[2018-11-14 12:12] LABS: Thyroid Stimulating Hormone 3.28 uIU/mL (0.47-4.68)
== END ==
PROVIDERS: Family Provider Internal Medicine; PCP Internal Medicine; Visit Provider Internal Medicine Cardiovascular Disease
DX: I48.0 Paroxysmal atrial fibrillation (principal)
CPT/HCPCS: 36415; 80048; 83735; 84443; 85025

== ENCOUNTER → 2019-01-09 16:21 | Outpatient (ROUT) | payer MEDICARE, OTHER, SELFPAY | PROVIDERS: Family Provider Internal Medicine; PCP Internal Medicine; Visit Provider Internal Medicine | DX: L08.9 Local infection of the skin and subcutaneous tissue, unspecified (principal) | CPT/HCPCS: 87070; 87075; 87205 ==